=== PATIENT | female | born 1940 | race Caucasian/White ===

== ENCOUNTER 2017-01-16 12:35 | Inpatient (IN) | payer MEDICARE, OTHER ==
[~2017-01-16] VITALS: Ht 160 cm; Wt 91.2 kg
[2017-01-16 14:07] LABS: ABNORMAL IP MESSAGE 1; BASOPHILS % 0.3 % (0.0-2.0); EOSINOPHILS # 0.1 10^3/ul (0.0-0.5); EOSINOPHILS % 1.3 % (0.0-7.0); HEMATOCRIT 33.5 % (37.0-47.0); HEMOGLOBIN 10.6 g/dl (12.0-16.0); LYMPHOCYTES # 0.8 10^3/ul (0.8-2.9); LYMPHOCYTES % 12.4 % (15.0-51.0); MEAN CORPUSCULAR HEMOGLOBIN 30.3 pg (29.0-33.0); MEAN CORPUSCULAR HGB CONC 31.6 g/dl (32.0-37.0); MEAN CORPUSCULAR VOLUME 95.7 fl (82.0-101.0); MONOCYTE # 0.6 10^3/ul (0.3-0.9); MONOCYTES % 9.2 % (0.0-11.0); NEUTROPHIL # 5.1 10^3/ul (1.6-7.5); NEUTROPHILS % 76.4 % (39.0-77.0); PLATELET COUNT 88 10^3/UL (140-415); RED CELL DISTRIBUTION WIDTH 17.2 % (11.5-14.5); WHITE BLOOD COUNT 6.7 10^3/ul (4.8-10.8)
[2017-01-16 14:20] LABS: POSITIVE DIFF @See below
[2017-01-16 14:26] LABS: ALBUMIN 4.8 g/dl (3.3-4.9); ALBUMIN/GLOBULIN RATIO 1.41; CREATININE 4.85 mg/dl (0.44-1.00); POTASSIUM 4.6 mmol/L (3.5-5.1); TOTAL PROTEIN 8.2 g/dl (6.1-8.1)
--- NOTE | 2017-01-16 14:37 | RADRPT ---
AMENDMENT: 01/17/2017 1:09:16 PM Inge Lux M.D. There is an 8.1 x 3.7 x 8.1 cm homogeneous structure around the greater trochanter of the left proxi mal femur measuring approximately 55 HU in density. There is soft tissue stranding of the overlying subcutaneous soft tissues. There are no underlying bony changes. Further evaluation with MRI pelvi s/left hip with and without contrast is recommended to evaluate for mass. An MRI has been ordered a t time of current addendum. PROCEDURE: CT Abdomen and Pelvis without contrast. CLINICAL INDICATION: Pain. TECHNIQUE: Multiple contiguous axial CT images of the abdomen and pelvis were obtained without the administration of intravenous contrast. Coronal and sagittal reconstructions were also performed. CTDIvol (mGy): 20.93; Total Exam DLP (mGy-cm): 1276.67. One or more of the following dose reduction techniques were utilized: - Automated exposure control. - Adjustment of the mA and/or kV according to patient size. - Use of iterative reconstruction technique. COMPARISON: None. FINDINGS: Limited imaging of the lower thorax demonstrates scattered nonspecific chronic interstitial changes with mild traction bronchiectasis. The liver demonstrates a micronodular contour suggesting the presence of cirrhosis. The spleen is e nlarged measuring approximately 16.2 cm in a craniocaudal dimension. Cholelithiasis is present. The pancreas and adrenal glands are unremarkable. The kidneys are small and symmetric in size. There are no nephroureteral stones. There is no hydron ephrosis or abnormal perinephric inflammation. The abdominal aorta is normal in caliber. Atherosclerotic calcification is present. There is no per iaortic / retroperitoneal lymphadenopathy. The stomach and small and large intestines are unremarkable. The appendix is not visualized. There are no focal inflammatory changes of the mesentery. There is no mesenteric lymphadenopathy. There is no ascites. The bladder, uterus and adnexa are unremarkable. There is no free pelvic fluid. There is no pelvic sidewall or inguinal lymphadenopathy. Moderate severe degenerative disk disease is seen throughout the lumbar spine. Bilateral hip osteoa rthritis is also present. Body wall soft tissues are unremarkable. IMPRESSION: Cirrhosis and portal hypertension. Cholelithiasis. No evidence of abdominopelvic mass, lymphadenopathy or acute inflammatory pathology. RPTAT: HLST .Inge Lux MD, MD Date Time Electronically viewed and signed by .Inge Lux MD, MD on 01/17/2017 13:09 .T/
--- NOTE | 2017-01-16 15:07 | RADRPT ---
PROCEDURE: XR Hip. CLINICAL INDICATION: Bilateral hip pain. TECHNIQUE: 4 views of the bilateral hips were performed. COMPARISON: CT dated 08/03. FINDINGS: There is no acute fracture, dislocation, or other osteoarticular abnormality. The alignm ent is normal and the soft tissues unremarkable. The osseous mineralization is within normal limits . There is mild to moderate osteoarthritis of the hip joints bilaterally with joint space narrowing and subchondral sclerosis. There is moderate degenerative change of the SI joints bilaterally. IMPRESSION: 1. Negative for acute fracture dislocation. 2. Mild to moderate osteoarthritis of the hip joints bilaterally. 3. Moderate degenerative change of the SI joints bilaterally. RPTAT: HLBP .Tyson Gregg MD, Date Time Electronically viewed and signed by .Tyson Gregg MD, on 01/16/2017 15:07 .P/
[2017-01-16 15:21] LABS: ADD UMIC YES; UR ASCORBIC ACID 40 mg/dL (NEGATIVE); UR BILIRUBIN (Dip) NEGATIVE (NEGATIVE); UR BLOOD (Dip) NEGATIVE (NEGATIVE); UR CLARITY CLEAR (CLEAR); UR COLOR YELLOW (YELLOW); UR GLUCOSE (Dip) 1+ mg/dL (NEGATIVE); UR KETONES (Dip) NEGATIVE (NEGATIVE); UR LEUKOCYTE ESTERASE (Dip) NEGATIVE Leu/ul (NEGATIVE); UR NITRITE (Dip) NEGATIVE (NEGATIVE); UR RBC 0 /HPF (0-5); UR SPECIFIC GRAVITY (Dip) 1.014 (1.003-1.030); UR TOTAL PROTEIN (Dip) 2+ mg/dl (NEGATIVE); UR UROBILINOGEN (Dip) NEGATIVE (NEGATIVE)
[2017-01-16] MEDS ORDERED: DEXAMETHASONE 10 MG/ML 1 ML INJ IV ONE (16:00)
[2017-01-16] MEDS ORDERED: morphine 2 MG INJ IV ONE (16:00)
--- NOTE | 2017-01-16 16:52 | ERA ---
ER Documentation Chief Complaint Date/Time DATE: 01/16/17 TIME: 16:49 Chief Complaint LEFT HIP PAIN SINCE THIS AM HPI This 76-year-old female presents to the emergency room after being sent in by her senior interactive producer for evaluation of hip pain. This patient has had left hip pain and right hip pain for the past 2 days and has been unable to walk. The patient was referred to the emergency room for further evaluation. She denies any trauma, denies any fevers associated with this and came to the ER for further evaluation. ROS All systems reviewed and are negative except as per history of present illness. Allergies Allergies: Coded Allergies: No Known Allergy (Unverified , 01/16/17) PMhx/Soc History of Surgery: Yes (DEBORAH AV FISTULA) Anesthesia Reaction: No Hx Neurological Disorder: No Hx Respiratory Disorders: No Hx Cardiac Disorders: Yes (HTN) Hx Psychiatric Problems: No Hx Miscellaneous Medical Probl: Yes (CKD ON HD, DM) Hx Alcohol Use: No Hx Substance Use: No Hx Tobacco Use: No Smoking Status: Never smoker Physical Exam Vitals Vital Signs Date Time Temp Pulse Resp B/P Pulse Ox O2 Delivery O2 Flow Rate FiO2 01/16/17 15:40 98.1 76 18 119/53 95 Room Air 01/16/17 12:40 98.2 82 18 168/71 93 Physical Exam Const: No acute distress Head: Atraumatic Eyes: Normal Conjunctiva ENT: Normal External Ears, Nose and Mouth. Neck: Full range of motion..~ No meningismus. Resp: Clear to auscultation bilaterally Cardio: Regular rate and rhythm, no murmurs Abd: Soft, non tender, non distended. Normal bowel sounds Skin: No petechiae or rashes Back: No midline or flank tenderness Ext: Positive straight leg raise degrees on the left, no cyanosis, or edema Neur: Awake and alert Psych: Normal Mood and Affect Result Diagram: 01/16/17 1355 01/16/17 1355 Results 24 hrs Laboratory Tests Test 01/16/17 13:55 01/16/17 14:38 White Blood Count 6.710^3/ul Red Blood Count 3.5010^6/ul Hemoglobin 10.6g/dl Hematocrit 33.5% Mean Corpuscular Volume 95.7fl Mean Corpuscular Hemoglobin 30.3pg Mean Corpuscular Hemoglobin Concent 31.6g/dl Red Cell Distribution Width 17.2% Platelet Count 8810^3/UL Mean Platelet Volume 11.0fl Neutrophils % 76.4% Lymphocytes % 12.4% Monocytes % 9.2% Eosinophils % 1.3% Basophils % 0.3% Nucleated Red Blood Cells % 0.0/100WBC Neutrophils # 5.110^3/ul Lymphocytes # 0.810^3/ul Monocytes # 0.610^3/ul Eosinophils # 0.110^3/ul Basophils # 0.010^3/ul Nucleated Red Blood Cells # 0.010^3/ul Sodium Level 141mmol/L Potassium Level 4.6mmol/L Chloride Level 93mmol/L Carbon Dioxide Level 24mmol/L Anion Gap 29 Blood Urea Nitrogen 65mg/dl Creatinine 4.85mg/dl Glucose Level 163mg/dl Calcium Level 10.0mg/dl Total Bilirubin 0.0mg/dl Direct Bilirubin 0.00mg/dl Indirect Bilirubin 0.0mg/dl Aspartate Amino Transf (AST/SGOT) 26IU/L Alanine Aminotransferase (ALT/SGPT) 26IU/L Alkaline Phosphatase 144IU/L Total Protein 8.2g/dl Albumin 4.8g/dl Globulin 3.40g/dl Albumin/Globulin Ratio 1.41 Lipase 386U/L Urine Color YELLOW Urine Clarity CLEAR Urine pH 7.0 Urine Specific [place] 1.014 Urine Ketones NEGATIVEmg/dL Urine Nitrite NEGATIVEmg/dL Urine Bilirubin NEGATIVEmg/dL Urine Urobilinogen NEGATIVEmg/dL Urine Leukocyte Esterase NEGATIVELeu/ul Urine Microscopic RBC 0/HPF Urine Microscopic WBC 0/HPF Urine Hemoglobin NEGATIVEmg/dL Urine Glucose 1+mg/dL Urine Total Protein 2+mg/dl Current Medications Medications (Trade) Dose Ordered Sig/Mike Route PRN Reason Start Time Stop Time Status Last Admin Dose Admin Morphine Sulfate (morphine) 2 mg ONCE ONCE IV 01/16/17 16:00 01/16/17 16:01 DC 01/16/17 15:54 Dexamethasone (Decadron) 10 mg ONCE ONCE IV 01/16/17 16:00 01/16/17 16:01 DC 01/16/17 15:54 Procedures/MDM X-ray Hip 2V Interpreted by me: Bones: [No fracture] Joints: [No dislocation] Foreign body: [None] CT abdomen pelvis: 1. Negative for acute fracture dislocation. 2. Mild to moderate osteoarthritis of the hip joints bilaterally. 3. Moderate degenerative change of the SI joints bilaterally. This 76-year-old female presents to the ER for evaluation of right and left hip pain. This patient had no trauma. X-rays are clear. Lab work was obtained which is within normal limits except for chronic renal insufficiency. CT the abdomen pelvis is also within normal limits. The patient had a straight leg raise which is positive on the left consistent with acute sciatica. I contacted her senior interactive producer who stated the patient can go home however prior to discharge this patient states she could not ambulate. The patient was given morphine, Decadron, and 3 attempts have been made to ambulate this patient however she states she cannot walk. The patient has no focal neurological deficits and intact reflexes. She will be placed in for admission at this time for inability to ambulate for PT OT consult Departure Diagnosis: Primary Impression: Inability to ambulate due to hip Additional Impressions: Hip pain Chronic renal failure Condition: Fair LINDA SCHROEDER DO Jan 16, 2017 16:52
[2017-01-16] MEDS ORDERED: ONDANSETRON 4 MG INJ IV PRN ×2 (17:00→19:00)
[2017-01-16] MEDS ORDERED: ACETAMINOPHEN 325 MG TAB PO PRN (17:00)
[2017-01-16 18:24] VITALS: TEMP 98.5
[2017-01-16] MEDS ORDERED: morphine 2 MG INJ IV PRN (19:00)
[2017-01-16] MEDS ORDERED: NACL 0.9% 3 ML SYG IV SCH (19:00)
--- NOTE | 2017-01-16 19:03 | HP ---
Date/Time of Note Date/Time of Note DATE: 01/16/17 TIME: 18:41 Assessment/Plan VTE Prophylaxis VTE Prophylaxis Intervention: SCD's Assessment/Plan Chief Complaint/Hosp Course Patient is a 76-year-old female with a past medical history of end-stage renal disease and osteoarthritis who presents to [facility] for debility and left and right hip pain with no CT abnormality Assessment and problem list Weakness Anemia, chronic Thrombocytopenia End-stage renal disease Hip pain Osteoarthritis Questionable cirrhosis Splenomegaly Moderate to severe degenerative disc disease Bilateral hip osteoarthritis Portal hypertension Electrolyte derangement Plan -CT showing only osteoarthritis and moderate to severe lumbar disc degeneration. However upon personal read there is soft tissue mass on the left hip area where patient is complaining of new onset mass, possibly inflammatory, as patient states that already improved with morphine and dexamethasone. -Monitor area of inflammation tomorrow, and possible repeat read from another radiologist. -Dr. Robertson consulted for nephrology, will dialyze as needed. -Possible sciatic nerve involvement given straight leg test positive by ED physician, will restart gabapentin and as needed muscle relaxers -Questionable undiagnosed cirrhosis, will monitor for now and will likely need outpatient GI follow-up, no acute complaints regarding. -PT OT, possible rehab Problems: HPI/ROS Admit Date/Time Admit Date/Time Hx of Present Illness Patient is a 76-year-old female with a past medical history of end-stage renal disease on hemodialysis, osteoarthritis and dyslipidemia who presents to [facility] for difficulty ambulating and hip pain. Patient was evaluated in the ED and stated that for the past day or so she normally can get up by herself or with mild assistance and this time could not ambulate which he usually does with a cane. The son is at bedside to help translate. Patient states that there is also a bump on her hip which is new but that the pain and size of this bump has decreased since receiving Decadron and morphine in the ED. Patient had a positive straight leg test per ED physician. CT and x-ray were negative except for chronic osteoarthritis and degenerative changes. PMH: End-stage renal disease, gout, dyslipidemia, questionable cirrhosis, osteoarthritis PSH: Left upper extremity fistula Social: Denies smoking drinking or drugs Meds: Allopurinol 100 mg daily, Lipitor 20 mg daily, ferrous sulfate 325 mill grams daily, Lasix 20 mg twice a day, omega-3 fatty acid 1 g twice a day, Renvela 800 mg 3 times a day, Tiffany-Radha, vitamin D3, magnesium, gemfibrozil 600 mg daily PMH/Family/Social Social History Smoking Status: Never smoker Exam/Review of Systems Vital Signs Vitals Vital Signs Date Time Temp Pulse Resp B/P Pulse Ox O2 Delivery O2 Flow Rate FiO2 01/16/17 18:24 98.5 74 18 122/64 94 Room Air Exam Exam Physical exam General: Patient is laying in bed and answers questions appropriately Mentation: Patient is alert and oriented 4, Head: Normocephalic atraumatic Eyes: EOMI, pupils reactive to light Neck: Supple, nontender, midline Respiratory: Clear to auscultation bilaterally Cardiovascular: regular rate, no obvious murmurs Gastrointestinal: non-tender to palpation, bowel sounds heard. obese Neurological: Moves all extremities spontaneously, L LE markedly weak 2/2 pain compared to R. Skin: L hip has palpable mass, soft tissue texture with no erythema/tenderness. Labs Result Diagram: 01/16/17 1355 01/16/17 1355 SANDRA DENNIS Jan 16, 2017 19:03
[2017-01-16 19:48] VITALS: BP 125/68; RESP 20
[2017-01-16] MEDS: PREGABALIN 25 MG CAP PO SCH (20:19)
[2017-01-16] MEDS: ATORVASTATIN 20 MG TAB PO SCH (20:19)
[2017-01-16] MEDS: FUROSEMIDE 20 MG TAB PO SCH (20:20)
[2017-01-16] MEDS: GABAPENTIN 100 MG CAP PO SCH (20:20)
[2017-01-16 20:24] VITALS: Ht 160 cm; Wt 91.2 kg
[2017-01-16] MEDS ORDERED: GLUCOSE GEL 15 GRAM TUBE BUCCAL PRN (21:00)
[2017-01-16] MEDS ORDERED: GLUCAGON 1 MG INJ IM PRN (21:00)
[2017-01-16] MEDS ORDERED: GLUCOSE GEL 15 GRAM TUBE PO PRN ×2 (21:00)
[2017-01-16] MEDS ORDERED: DEXTROSE 50% 50 ML SYRINGE IV PRN ×2 (21:00)
[2017-01-16] MEDS: INSULIN ASPART [NOVOLOG] 3 ML PEN SC SCH (22:29)
[2017-01-16] MEDS ORDERED: INSULIN ASPART [NOVOLOG] 3 ML PEN SC ONE (23:00)
[2017-01-16] MEDS ORDERED: morphine 4 MG/ML VIAL IV PRN (23:00)
[2017-01-16] MEDS: MULTIVIT/CA CARB/B CMPLX/FA TAB PO SCH (23:22)
[2017-01-16] MEDS: INSULIN GLARGINE [LANtus] 3 ML PEN SC SCH (23:23)
[2017-01-17] VITALS (11 sets, daily range): BP systolic 101–129; BP diastolic 55–77; PULSE 67–70; RESP 18–19
[2017-01-17] MEDS ORDERED: ACCU-CHEK XX SCH (02:00)
[2017-01-17] MEDS: ACCU-CHEK XX SCH (03:40)
[2017-01-17 05:35] LABS: ABNORMAL IP MESSAGE 1; HEMATOCRIT 30.5 % (37.0-47.0); HEMOGLOBIN 9.6 g/dl (12.0-16.0); LYMPHOCYTES # 0.5 10^3/ul (0.8-2.9); LYMPHOCYTES % 14.7 % (15.0-51.0); MEAN CORPUSCULAR HEMOGLOBIN 30.4 pg (29.0-33.0); MEAN CORPUSCULAR HGB CONC 31.5 g/dl (32.0-37.0); MEAN CORPUSCULAR VOLUME 96.5 fl (82.0-101.0); MONOCYTE # 0.2 10^3/ul (0.3-0.9); MONOCYTES % 5.6 % (0.0-11.0); NEUTROPHIL # 2.7 10^3/ul (1.6-7.5); NEUTROPHILS % 78.8 % (39.0-77.0); PLATELET COUNT 70 10^3/UL (140-415); RED BLOOD COUNT 3.16 10^6/ul (4.20-5.40); RED CELL DISTRIBUTION WIDTH 16.6 % (11.5-14.5); WHITE BLOOD COUNT 3.4 10^3/ul (4.8-10.8)
[2017-01-17 05:41] LABS: POSITIVE DIFF @See below
[2017-01-17] MEDS: FUROSEMIDE 20 MG TAB PO SCH ×2 (06:00→17:51)
[2017-01-17 06:25] LABS: CALCIUM 9.8 mg/dl (8.4-10.2); CREATININE 5.16 mg/dl (0.44-1.00); MAGNESIUM 2.4 mg/dl (1.7-2.5); PHOSPHORUS 7.5 mg/dl (2.5-4.9)
[2017-01-17] MEDS: PREGABALIN 25 MG CAP PO SCH (09:01)
[2017-01-17] MEDS: SEVELAMER CARBONATE 0.8 GM PKT PO SCH ×3 (09:02→17:50)
[2017-01-17] MEDS: ALLOPURINOL 100 MG TAB PO SCH (09:02)
[2017-01-17] MEDS: MULTIVIT/CA CARB/B CMPLX/FA TAB PO SCH (09:02)
[2017-01-17] MEDS: GABAPENTIN 100 MG CAP PO SCH (09:02)
[2017-01-17] MEDS: GEMFIBROZIL 600 MG TAB PO SCH (09:02)
[2017-01-17] MEDS: INSULIN ASPART [NOVOLOG] 3 ML PEN SC SCH ×4 (09:06→21:02)
[2017-01-17] MEDS: HYDROCODONE/APAP (5/325) TAB PO PRN ×2 (11:50→17:51)
--- NOTE | 2017-01-17 13:52 | PN ---
Date/Time of Note Date/Time of Note DATE: 01/17/17 TIME: 13:49 Assessment/Plan VTE Prophylaxis VTE Prophylaxis Intervention: SCD's Lines/Catheters IV Catheter Type (from Nrsg): Saline Lock Assessment/Plan Chief Complaint/Hosp Course Patient is a 76-year-old female with a past medical history of end-stage renal disease and osteoarthritis who presents to [facility] for debility and left and right hip pain with no CT abnormality Assessment and problem list Weakness left hip mass Anemia, chronic Thrombocytopenia End-stage renal disease Hip pain Osteoarthritis Questionable cirrhosis Splenomegaly Moderate to severe degenerative disc disease Bilateral hip osteoarthritis Portal hypertension Electrolyte derangement Plan -sugars high, but a1c not significantly elevated, likely 2/2 to dexamethasone yesterday. monitor for now. insulin has been adjusted. -call made to radiology and addendum to imaging made, of soft tissue mass on left hip area. recommended MRI, MRI pending at this time. -Dr. Robertson consulted for nephrology, will dialyze as needed. -Possible sciatic nerve involvement given straight leg test positive, cont gabapentin -Questionable undiagnosed cirrhosis, will monitor for now and will likely need outpatient GI follow-up, no acute complaints regarding. -PT OT, possible rehab Problems: Subjective 24 Hr Interval Summary Free Text/Dictation still continued pain and still difficult to walk due to pain. Exam/Review of Systems Vital Signs Vitals Vital Signs Date Time Temp Pulse Resp B/P Pulse Ox O2 Delivery O2 Flow Rate FiO2 01/17/17 07:42 98.0 77 19 116/62 98 01/16/17 18:24 Room Air Intake and Output 01/16/17 01/16/17 01/17/17 15:00 23:00 07:00 Intake Total 1100 ml Output Total 3000 ml Balance -1900 ml Exam Physical exam General: Patient is laying in bed and answers questions appropriately Mentation: Patient is alert and oriented 4, Head: Normocephalic atraumatic Eyes: EOMI, pupils reactive to light Neck: Supple, nontender, midline Respiratory: Clear to auscultation bilaterally Cardiovascular: regular rate, no obvious murmurs Gastrointestinal: non-tender to palpation, bowel sounds heard. obese Neurological: Moves all extremities spontaneously, L LE markedly weak 2/2 pain compared to R. Skin: L hip has palpable mass, soft tissue texture with no erythema/tenderness. Results Result Diagram: 01/17/17 0441 01/17/17 0441 Results 24 hrs Laboratory Tests Test 01/16/17 13:55 01/16/17 14:38 01/16/17 22:24 01/17/17 03:38 White Blood Count 6.7 Red Blood Count 3.50 L Hemoglobin 10.6 L Hematocrit 33.5 L Mean Corpuscular Volume 95.7 Mean Corpuscular Hemoglobin 30.3 Mean Corpuscular Hemoglobin Concent 31.6 L Red Cell Distribution Width 17.2 H Platelet Count 88 L Mean Platelet Volume 11.0 H Neutrophils % 76.4 Lymphocytes % 12.4 L Monocytes % 9.2 Eosinophils % 1.3 Basophils % 0.3 Nucleated Red Blood Cells % 0.0 Neutrophils # 5.1 Lymphocytes # 0.8 Monocytes # 0.6 Eosinophils # 0.1 Basophils # 0.0 Nucleated Red Blood Cells # 0.0 Sodium Level 141 Potassium Level 4.6 Chloride Level 93 L Carbon Dioxide Level 24 Anion Gap 29 H Blood Urea Nitrogen 65 H Creatinine 4.85 H Glucose Level 163 Calcium Level 10.0 Total Bilirubin 0.0 L Direct Bilirubin 0.00 Indirect Bilirubin 0.0 Aspartate Amino Transf (AST/SGOT) 26 Alanine Aminotransferase (ALT/SGPT) 26 Alkaline Phosphatase 144 H Total Protein 8.2 H Albumin 4.8 Globulin 3.40 H Albumin/Globulin Ratio 1.41 Lipase 386 H Urine Color YELLOW Urine Clarity CLEAR Urine pH 7.0 Urine Specific [place] 1.014 Urine Ketones NEGATIVE Urine Nitrite NEGATIVE Urine Bilirubin NEGATIVE Urine Urobilinogen NEGATIVE Urine Leukocyte Esterase NEGATIVE Urine Microscopic RBC 0 Urine Microscopic WBC 0 Urine Hemoglobin NEGATIVE Urine Glucose 1+ H Urine Total Protein 2+ H Bedside Glucose 435 *H 294 H Test 01/17/17 04:41 01/17/17 08:40 01/17/17 12:17 White Blood Count 3.4 #L Red Blood Count 3.16 L Hemoglobin 9.6 L Hematocrit 30.5 L Mean Corpuscular Volume 96.5 Mean Corpuscular Hemoglobin 30.4 Mean Corpuscular Hemoglobin Concent 31.5 L Red Cell Distribution Width 16.6 H Platelet Count 70 #L Mean Platelet Volume 11.0 H Neutrophils % 78.8 H Lymphocytes % 14.7 L Monocytes % 5.6 Eosinophils % 0.0 Basophils % 0.0 Nucleated Red Blood Cells % 0.0 Neutrophils # 2.7 Lymphocytes # 0.5 L Monocytes # 0.2 L Eosinophils # 0.0 Basophils # 0.0 Nucleated Red Blood Cells # 0.0 Sodium Level 142 Potassium Level 5.0 Chloride Level 94 L Carbon Dioxide Level 23 Anion Gap 30 H Blood Urea Nitrogen 81 H Creatinine 5.16 H Glucose Level 246 H Hemoglobin A1c 6.6 H Calcium Level 9.8 Phosphorus Level 7.5 H Magnesium Level 2.4 Bedside Glucose 178 223 H Medications Medications Current Medications Ondansetron HCl (Zofran Inj) 4 mg Q6H PRN IV NAUSEA AND/OR VOMITING; Start 01/16 at 19:00 Bisacodyl (Dulcolax) 5 mg DAILY PRN PO CONSTIPATION; Start 01/16/17 at 19:00 Allopurinol (Zyloprim) 100 mg DAILY PO Last administered on 01/17/17 09:02; Admin Dose 100 MG; Start 01/17/17 at 09:00 Atorvastatin Calcium (Lipitor) 20 mg HS PO Last administered on 01/16/17 20:19 ; Admin Dose 20 MG; Start 01/16/17 at 21:00 Multivit/Ca Carb/ B Cmplx/FA/Prenat (Tiffany-Radha) 1 tab DAILY PO Last administered on 01/17/17 09:02; Admin Dose 1 TAB; Start 01/16/17 at 19:00 Gemfibrozil (Lopid) 600 mg DAILY PO Last administered on 01/17/17 09:02; Admin Dose 600 MG; Start 01/17/17 at 09:00 Gabapentin (Neurontin) 100 mg DAILY PO Last administered on 01/17/17 09:02; Admin Dose 100 MG; Start 01/16/17 at 19:30 Pregabalin (Lyrica) 25 mg DAILY PO Last administered on 01/17/17 09:01; Admin Dose 25 MG; Start 01/16/17 at 19:30 Diagnostic Test (Pha) (Accu-Chek) 1 ea 02 XX Last administered on 01/17/17 03: 40; Admin Dose 1 EA; Start 01/17/17 at 02:00 Miscellaneous Information 1 ea NOTE XX ; Start 01/16/17 at 21:00 Glucose (Glutose) 15 gm Q15M PRN PO DECREASED GLUCOSE; Start 01/16/17 at 21:00 Glucose (Glutose) 22.5 gm Q15M PRN PO DECREASED GLUCOSE; Start 01/16/17 at 21:00 Dextrose (D50w Syringe) 25 ml Q15M PRN IV DECREASED GLUCOSE; Start 01/16/17 at 21:00 Dextrose (D50w Syringe) 50 ml Q15M PRN IV DECREASED GLUCOSE; Start 01/16/17 at 21:00 Glucagon (Glucagen) 1 mg Q15M PRN IM DECREASED GLUCOSE; Start 01/16/17 at 21:00 Glucose (Glutose) 15 gm Q15M PRN BUCCAL DECREASED GLUCOSE; Start 01/16/17 at 21: 00 Insulin Glargine (Lantus) 12 unit HS SC Last administered on 01/16/17 23:23; Admin Dose 12 UNIT; Start 01/16/17 at 23:00 Acetaminophen/ Hydrocodone Bitart ([place] (5/325)) 1 tab Q4H PRN PO PAIN LEVEL 4 -6; Start 01/17/17 at 11:30 Acetaminophen/ Hydrocodone Bitart ([place] (5/325)) 2 tab Q4H PRN PO SEVERE PAIN LEVEL 7-10 Last administered on 01/17/17 11:50; Admin Dose 2 TAB; Start 01/17/17 at 11:30 SANDRA DENNIS Jan 17, 2017 13:52
[2017-01-17] MEDS ORDERED: FER325 PO (16:08)
[2017-01-17] MEDS ORDERED: ALLO100T64 PO (16:08)
[2017-01-17] MEDS ORDERED: FURO-110 PO (16:08)
[2017-01-17] MEDS ORDERED: MAGN400T27 PO (16:08)
[2017-01-17] MEDS ORDERED: OMEG1CAP90 PO (16:08)
[2017-01-17] MEDS ORDERED: SEVE0.8P PO (16:08)
[2017-01-17] MEDS ORDERED: GEMF600T60 PO (16:08)
[2017-01-17] MEDS ORDERED: ATOR20TA38 PO (16:08)
[2017-01-17] MEDS: ATORVASTATIN 20 MG TAB PO SCH (20:48)
[2017-01-17] MEDS: INSULIN GLARGINE [LANtus] 3 ML PEN SC SCH (21:01)
[2017-01-18] VITALS (11 sets, daily range): BP systolic 95–152; BP diastolic 42–67; PULSE 63–71; RESP 17–19
[2017-01-18] MEDS: ACCU-CHEK XX SCH (01:31)
--- NOTE | 2017-01-18 04:55 | CONS ---
DATE OF ADMISSION: 01/16/2017 DATE OF CONSULTATION: 01/17/[address] Mandujano: Thank you for asking me to participate in the care of this 76- year-old Czech female who speaks limited Peruvian. However, information is well available in her multiple previous admission records. She has known history of diabetes type 2, hypertension and congestive heart failure with end-stage kidney disease for which she has been on hemodialysis for several years in [place]. The son called in the cafe associate on the date of admission that the patient was having severe back pain and leg pain and could not get up. Ambulance was called and the patient was brought to the emergency room. The patient had been carefully evaluated with the ER physician and extensive workup failed to reveal any acute injury. However, since the patient could not walk she was transferred to the medical floor. Workup included a CT scan of the spine showing moderate to severe lumbar disk degeneration and there was a question of a mass, probably inflammatory in origin, in the left hip. The rest of the workup was negative. Hematocrit 33.5 percent. Electrolytes normal. BUN 65, creatinine 4.8. The patient was transferred to the medical floor where she had already been dialyzed because of her scheduled day of dialysis. She has also been evaluated by the orthopedist. Please refer to the ship's electronic warfare officer Dr. Mandujano's record further available in the chart, it is not clear if he's called an orthopedist. In summary, patient did have some additional studies including hip x-ray that was also suggestive of moderate degenerative joint changes, no hip fracture was noted. The white count was normal and the followup hematocrit dropped to 30.5 percent however. A urine culture was done and this shows 2+ protein, 1+ glucose. The rest is negative. Chemistry as mentioned the hemoglobin A1c was 6.6, blood sugar is in the 200 range. The patient is not taking any oral hypoglycemic agents at this time, although had been taking in the past. She may have to resume. REVIEW OF SYSTEMS: Negative for any head, ear, nose, throat problems, chest pain, shortness of breath, abdominal pain. The patient did have some episodes of confusion that may be related to pain medications. There was no direct trauma. No seizures, syncope or fall. No other metabolic problems. Rest of the history, please refer to the old records. Please note, the patient does have a history of chronic thrombocytopenia ? related to chronic liver disease with a history of splenomegaly. She is also documented to have osteoarthritis and anemia for which she has been placed on a fibrinogen 64 study and is taking Epogen. PHYSICAL EXAMINATION: GENERAL: The patient is a very pleasant, elderly female who appears to be in no acute distress. VITAL SIGNS: Blood pressure has been very stable at 130/60, heart rate is 77, temperature 98, respiration is not labored at 18. HEENT: Exam of the head, ears, nose, throat is unremarkable. Eyes: Symmetrical pupils, pale conjunctivae, sclerae not icteric. Nose: Normal mucosa. Throat: Tongue is pale, no pharyngeal congestion. NECK: Supple. No jugular venous distention, lymph nodes. Thyroid present. CHEST: Symmetrical. Lungs are clear. HEART: Regular rhythm, S1. No rhonchi. ABDOMEN: Distended. Question of ascites has been ruled out repeatedly by ultrasound. GENITOURINARY: Genitalia not examined. Pt has hx of UTI EXTREMITIES: Left arm AV fistula is functioning. SKIN: Pale. NEUROLOGICAL: No neurological deficits noted. IMPRESSION: 1. History of diabetes, hypertension, end-stage kidney disease, on dialysis. 2. Acute pain in the left hip, etiology unclear, probably related to degenerative joint disease. ? mass in lt hip 3. No evidence of mineral bone disease from the renal failure. 4. Hx of Thromocytopenia PLAN: Patient has been reasonably stable from the mineral metabolism standpoint. The sudden onset of acute pain in the hip is not clear. She probably has no evidence of any underlying fracture since they were not detected by the x-ray. Hemodialysis has already been performed. I will leave the further plans in the hands of Dr. Mandujano, the admitting physician, especially to pursue the source of her hip pain. which she hernandez not had in past.Pt can be discharged she will be followed at the dialysis center once the w/u is complete. Dictated By: Messi Robertson MD /gladis/bobby /Document#: [id number] NOMAN
[2017-01-18 05:13] LABS: ABNORMAL IP MESSAGE 1; BASOPHILS % 0.4 % (0.0-2.0); EOSINOPHILS # 0.1 10^3/ul (0.0-0.5); EOSINOPHILS % 2.4 % (0.0-7.0); HEMATOCRIT 28.2 % (37.0-47.0); HEMOGLOBIN 9.3 g/dl (12.0-16.0); MEAN CORPUSCULAR HEMOGLOBIN 31.4 pg (29.0-33.0); MEAN CORPUSCULAR VOLUME 95.3 fl (82.0-101.0); MEAN PLATELET VOLUME 10.8 fl (7.4-10.4); MONOCYTE # 0.5 10^3/ul (0.3-0.9); MONOCYTES % 10.8 % (0.0-11.0); NEUTROPHIL # 3.3 10^3/ul (1.6-7.5); PLATELET COUNT 81 10^3/UL (140-415); RED BLOOD COUNT 2.96 10^6/ul (4.20-5.40); RED CELL DISTRIBUTION WIDTH 16.5 % (11.5-14.5)
[2017-01-18 05:21] LABS: CALCIUM 8.4 mg/dl (8.4-10.2); CREATININE 4.1 mg/dl (0.44-1.00); POTASSIUM 3.7 mmol/L (3.5-5.1)
[2017-01-18 05:31] LABS: POSITIVE DIFF @See below
[2017-01-18] MEDS: FUROSEMIDE 20 MG TAB PO SCH ×2 (05:54→18:20)
[2017-01-18] MEDS: SEVELAMER CARBONATE 0.8 GM PKT PO SCH ×3 (07:50→18:17)
[2017-01-18] MEDS: INSULIN ASPART [NOVOLOG] 3 ML PEN SC SCH ×4 (09:11→21:14)
--- NOTE | 2017-01-18 11:42 | RADRPT ---
PROCEDURE: MR PELVIS CLINICAL INDICATION: Left hip gluteal mass. Unable to ambulate. TECHNIQUE: MRI of the pelvis was performed utilizing multiple sequences in multiple planes. Image s were reviewed on a high-resolution PACS workstation. No contrast was given since the patient's cre atinine was 5.16. COMPARISON: CT abdomen/pelvis from 01/16/2017 FINDINGS: Within the greater trochanteric bursa on the left, there is a lobulated structure measuring up to 8. 0 cm cranial-caudal by 5.0 cm transverse by 7.4 cm AP of heterogeneous signal. It demonstrates area s bright/dark T1 signal as well as intermediate to dark T2 signal. Areas of bright T1 signal within the structure correspond with dark signal on the fluid-sensitive sequences. It demonstrates increase d attenuation on the CT images without calcification or adjacent bony destructive changes. There is adjacent soft tissue edema and edema within the gluteal musculature. There is also edema within th e vastus lateralis muscle. This lies adjacent to the greater trochanter of the left femur without a n acute fracture, marrow edema, or bony destructive changes. There is thickening and scarring of the left gluteus minimus and medius tendons. There is mild hamst ring origin tendinosis with attenuation of the tendon fibers at the origin. The rectus femoris and iliopsoas tendons are intact. There is no acute fracture, stress reaction, or avascular necrosis of both hips. There is partial t hickness chondral loss within both hips with mild osseous spurring. There are small subchondral cys t within the anterior acetabulum on the left. No significant joint effusion is present. There is also fatty atrophy of the gluteal muscles around the right hip. The pubic symphysis is intact with mild osseous spurring. The adductor muscles and adductor tendon origins are intact. The bilateral sacroiliac joints are intact with mild osseous spurring. There is disk space narrowin g and desiccation within the lower lumbar spine with slight left convex curvature. There is no lymphadenopathy within the visualized pelvis. Pelvic organs are grossly unremarkable. RPTAT: ZZ IMPRESSION: 1. Lobulated structure measuring up to 8.0 cm within the greater trochanteric bursa of heterogeneou s signal and surrounding soft tissue/muscle edema suggestive of a hematoma. A hemorrhagic soft tiss ue neoplasm is not excluded since contrast was not given due to the patient's creatinine in which fo llow-up to resolution is recommended, further evaluation with ultrasound with color Doppler imaging may also be helpful. 2. Mild scarring and thickening of the gluteal tendons which may be from tendinosis. 3. Mild osteoarthrosis of both hips. .Kinjal Scott MD, Date Time Electronically viewed and signed by .Kinjal Scott MD, on 01/18/2017 11:42 .T/
[2017-01-18] MEDS: GEMFIBROZIL 600 MG TAB PO SCH (13:02)
[2017-01-18] MEDS: HYDROCODONE/APAP (5/325) TAB PO PRN (13:04)
[2017-01-18] MEDS: ALLOPURINOL 100 MG TAB PO SCH (13:04)
[2017-01-18] MEDS: PREGABALIN 25 MG CAP PO SCH (13:04)
[2017-01-18] MEDS: MULTIVIT/CA CARB/B CMPLX/FA TAB PO SCH (13:04)
[2017-01-18] MEDS: GABAPENTIN 100 MG CAP PO SCH (13:08)
[2017-01-18] MEDS ORDERED: HYDROCORTISONE 1% 28 GM CR TOP PRN (14:00)
--- NOTE | 2017-01-18 14:09 | PN ---
Date/Time of Note Date/Time of Note DATE: 01/18/17 TIME: 14:08 Assessment/Plan VTE Prophylaxis VTE Prophylaxis Intervention: SCD's Lines/Catheters IV Catheter Type (from Nrsg): Saline Lock Assessment/Plan Chief Complaint/Hosp Course Patient is a 76-year-old female with a past medical history of end-stage renal disease and osteoarthritis who presents to [facility] for debility and left and right hip pain with no CT abnormality Assessment and problem list Weakness left hip mass Anemia, chronic Thrombocytopenia End-stage renal disease Hip pain Osteoarthritis Questionable cirrhosis Splenomegaly Moderate to severe degenerative disc disease Bilateral hip osteoarthritis Portal hypertension Electrolyte derangement Plan -sugars high, but a1c not significantly elevated, likely 2/2 to dexamethasone during admission. monitor for now. insulin has been adjusted. -call made to radiology and addendum to imaging made, of soft tissue mass on left hip area. recommended MRI, MRI shows hematoma vs mass. ortho and heme/onc consulted. -Dr. Robertson consulted for nephrology, will dialyze as needed. -Possible sciatic nerve involvement given straight leg test positive, cont gabapentin -Questionable undiagnosed cirrhosis, will monitor for now and will likely need outpatient GI follow-up, no acute complaints regarding. -PT OT, possible rehab Problems: Subjective 24 Hr Interval Summary Free Text/Dictation no acute complaints, still has left leg pain. Exam/Review of Systems Vital Signs Vitals Vital Signs Date Time Temp Pulse Resp B/P Pulse Ox O2 Delivery O2 Flow Rate FiO2 01/18/17 11:00 63 18 01/18/17 08:29 98.0 148/58 92 01/16/17 18:24 Room Air Intake and Output 01/17/17 01/17/17 01/18/17 15:00 23:00 07:00 Intake Total 340 ml 400 ml Balance 340 ml 400 ml Exam Physical exam General: Patient is laying in bed and answers questions appropriately Mentation: Patient is alert and oriented 4, Head: Normocephalic atraumatic Eyes: EOMI, pupils reactive to light Neck: Supple, nontender, midline Respiratory: Clear to auscultation bilaterally Cardiovascular: regular rate, no obvious murmurs Gastrointestinal: non-tender to palpation, bowel sounds heard. obese Neurological: Moves all extremities spontaneously, L LE markedly weak 2/2 pain compared to R. Skin: L hip has palpable mass, soft tissue texture with no erythema/tenderness. Results Result Diagram: 01/18/17 0445 01/18/17 0445 Results 24 hrs Laboratory Tests Test 01/17/17 17:43 01/17/17 20:53 01/18/17 01:29 01/18/17 04:45 Bedside Glucose 242 H 283 H 186 White Blood Count 5.0 # Red Blood Count 2.96 L Hemoglobin 9.3 L Hematocrit 28.2 L Mean Corpuscular Volume 95.3 Mean Corpuscular Hemoglobin 31.4 Mean Corpuscular Hemoglobin Concent 33.0 Red Cell Distribution Width 16.5 H Platelet Count 81 L Mean Platelet Volume 10.8 H Neutrophils % 66.0 Lymphocytes % 20.0 Monocytes % 10.8 Eosinophils % 2.4 Basophils % 0.4 Nucleated Red Blood Cells % 0.0 Neutrophils # 3.3 Lymphocytes # 1.0 Monocytes # 0.5 Eosinophils # 0.1 Basophils # 0.0 Nucleated Red Blood Cells # 0.0 Sodium Level 136 Potassium Level 3.7 Chloride Level 87 L Carbon Dioxide Level 27 Anion Gap 26 H Blood Urea Nitrogen 62 H Creatinine 4.10 #H Glucose Level 176 Calcium Level 8.4 Phosphorus Level 7.0 H Magnesium Level 2.0 Test 01/18/17 08:45 Bedside Glucose 164 Medications Medications Current Medications Ondansetron HCl (Zofran Inj) 4 mg Q6H PRN IV NAUSEA AND/OR VOMITING; Start 01/16 at 19:00 Bisacodyl (Dulcolax) 5 mg DAILY PRN PO CONSTIPATION; Start 01/16/17 at 19:00 Allopurinol (Zyloprim) 100 mg DAILY PO Last administered on 01/18/17 13:04; Admin Dose 100 MG; Start 01/17/17 at 09:00 Atorvastatin Calcium (Lipitor) 20 mg HS PO Last administered on 01/17/17 20:48 ; Admin Dose 20 MG; Start 01/16/17 at 21:00 Multivit/Ca Carb/ B Cmplx/FA/Prenat (Tiffany-Radha) 1 tab DAILY PO Last administered on 01/18/17 13:04; Admin Dose 1 TAB; Start 01/16/17 at 19:00 Gemfibrozil (Lopid) 600 mg DAILY PO Last administered on 01/18/17 13:02; Admin Dose 600 MG; Start 01/17/17 at 09:00 Gabapentin (Neurontin) 100 mg DAILY PO Last administered on 01/18/17 13:08; Admin Dose 100 MG; Start 01/16/17 at 19:30 Pregabalin (Lyrica) 25 mg DAILY PO Last administered on 01/18/17 13:04; Admin Dose 25 MG; Start 01/16/17 at 19:30 Diagnostic Test (Pha) (Accu-Chek) 1 ea 02 XX Last administered on 01/18/17 01: 31; Admin Dose 1 EA; Start 01/17/17 at 02:00 Miscellaneous Information 1 ea NOTE XX ; Start 01/16/17 at 21:00 Glucose (Glutose) 15 gm Q15M PRN PO DECREASED GLUCOSE; Start 01/16/17 at 21:00 Glucose (Glutose) 22.5 gm Q15M PRN PO DECREASED GLUCOSE; Start 01/16/17 at 21:00 Dextrose (D50w Syringe) 25 ml Q15M PRN IV DECREASED GLUCOSE; Start 01/16/17 at 21:00 Dextrose (D50w Syringe) 50 ml Q15M PRN IV DECREASED GLUCOSE; Start 01/16/17 at 21:00 Glucagon (Glucagen) 1 mg Q15M PRN IM DECREASED GLUCOSE; Start 01/16/17 at 21:00 Glucose (Glutose) 15 gm Q15M PRN BUCCAL DECREASED GLUCOSE; Start 01/16/17 at 21: 00 Insulin Glargine (Lantus) 12 unit HS SC Last administered on 01/17/17 21:01; Admin Dose 12 UNIT; Start 01/16/17 at 23:00 Acetaminophen/ Hydrocodone Bitart ([place] (5/325)) 1 tab Q4H PRN PO PAIN LEVEL 4 -6 Last administered on 01/18/17 13:04; Admin Dose 1 TAB; Start 01/17/17 at 11:30 Acetaminophen/ Hydrocodone Bitart ([place] (5/325)) 2 tab Q4H PRN PO SEVERE PAIN LEVEL 7-10 Last administered on 01/17/17 17:51; Admin Dose 2 TAB; Start 01/17/17 at 11:30 Hydrocortisone (Hydrocortisone 1% Cr) 1 applic TID PRN TOP ITCHING; Start at 14:00 SANDRA DENNIS Jan 18, 2017 14:09
--- NOTE | 2017-01-18 15:02 | CONS ---
Date/Time of Note Date/Time of Note DATE: 01/18/17 TIME: 15:00 Assessment/Plan Assessment/Plan Additional Assessment/Plan 76 yo female Weakness left hip mass Anemia, chronic Thrombocytopenia End-stage renal disease Hip pain Osteoarthritis Questionable cirrhosis Splenomegaly Moderate to severe degenerative disc disease Bilateral hip osteoarthritis Portal hypertension Electrolyte derangement Soft Tissue Mass, Hematoma Appreciate Ortho and Hem.Onc Consultation S/p HD MWF Schedule BP controlled Cont current Rx and plan Consultation Date/Type/Reason Admit Date/Time Jan 18, 2017 at 10:01 Initial Consult Date Type of Consultation: Renal Reason for Consultation ESRD 24 HR Interval Summary Free Text/Dictation S/p HD yesterday and this am Constitutional: No requiring O2 Exam/Review of Systems Vital Signs Vitals Vital Signs Date Time Temp Pulse Resp B/P Pulse Ox O2 Delivery O2 Flow Rate FiO2 01/18/17 14:48 98.0 76 18 147/67 91 01/16/17 18:24 Room Air Intake and Output 01/17/17 01/17/17 01/18/17 15:00 23:00 07:00 Intake Total 340 ml 400 ml Balance 340 ml 400 ml Exam Constitutional: alert, No distress ENMT: mucosa pink and moist Neck: No jvd Respiratory: No diminished breath sounds, No labored breathing Cardiovascular: regular rate and rhythm, No edema Gastrointestinal: soft Neurological: ENTRY LEVEL [place] II-XII intact, nl mental status, nl speech, nl strength, No confused, No lethargic Skin: No diaphoresis Results Result Diagram: 01/18/17 0445 01/18/17 0445 Results 24 hrs Laboratory Tests Test 01/17/17 17:43 01/17/17 20:53 01/18/17 01:29 01/18/17 04:45 Bedside Glucose 242 H 283 H 186 White Blood Count 5.0 # Red Blood Count 2.96 L Hemoglobin 9.3 L Hematocrit 28.2 L Mean Corpuscular Volume 95.3 Mean Corpuscular Hemoglobin 31.4 Mean Corpuscular Hemoglobin Concent 33.0 Red Cell Distribution Width 16.5 H Platelet Count 81 L Mean Platelet Volume 10.8 H Neutrophils % 66.0 Lymphocytes % 20.0 Monocytes % 10.8 Eosinophils % 2.4 Basophils % 0.4 Nucleated Red Blood Cells % 0.0 Neutrophils # 3.3 Lymphocytes # 1.0 Monocytes # 0.5 Eosinophils # 0.1 Basophils # 0.0 Nucleated Red Blood Cells # 0.0 Sodium Level 136 Potassium Level 3.7 Chloride Level 87 L Carbon Dioxide Level 27 Anion Gap 26 H Blood Urea Nitrogen 62 H Creatinine 4.10 #H Glucose Level 176 Calcium Level 8.4 Phosphorus Level 7.0 H Magnesium Level 2.0 Test 01/18/17 08:45 Bedside Glucose 164 Medications Medications Current Medications Ondansetron HCl (Zofran Inj) 4 mg Q6H PRN IV NAUSEA AND/OR VOMITING; Start 01/16 at 19:00 Bisacodyl (Dulcolax) 5 mg DAILY PRN PO CONSTIPATION; Start 01/16/17 at 19:00 Allopurinol (Zyloprim) 100 mg DAILY PO Last administered on 01/18/17 13:04; Admin Dose 100 MG; Start 01/17/17 at 09:00 Atorvastatin Calcium (Lipitor) 20 mg HS PO Last administered on 01/17/17 20:48 ; Admin Dose 20 MG; Start 01/16/17 at 21:00 Multivit/Ca Carb/ B Cmplx/FA/Prenat (Tiffany-Radha) 1 tab DAILY PO Last administered on 01/18/17 13:04; Admin Dose 1 TAB; Start 01/16/17 at 19:00 Gemfibrozil (Lopid) 600 mg DAILY PO Last administered on 01/18/17 13:02; Admin Dose 600 MG; Start 01/17/17 at 09:00 Gabapentin (Neurontin) 100 mg DAILY PO Last administered on 01/18/17 13:08; Admin Dose 100 MG; Start 01/16/17 at 19:30 Pregabalin (Lyrica) 25 mg DAILY PO Last administered on 01/18/17 13:04; Admin Dose 25 MG; Start 01/16/17 at 19:30 Diagnostic Test (Pha) (Accu-Chek) 1 ea 02 XX Last administered on 01/18/17 01: 31; Admin Dose 1 EA; Start 01/17/17 at 02:00 Miscellaneous Information 1 ea NOTE XX ; Start 01/16/17 at 21:00 Glucose (Glutose) 15 gm Q15M PRN PO DECREASED GLUCOSE; Start 01/16/17 at 21:00 Glucose (Glutose) 22.5 gm Q15M PRN PO DECREASED GLUCOSE; Start 01/16/17 at 21:00 Dextrose (D50w Syringe) 25 ml Q15M PRN IV DECREASED GLUCOSE; Start 01/16/17 at 21:00 Dextrose (D50w Syringe) 50 ml Q15M PRN IV DECREASED GLUCOSE; Start 01/16/17 at 21:00 Glucagon (Glucagen) 1 mg Q15M PRN IM DECREASED GLUCOSE; Start 01/16/17 at 21:00 Glucose (Glutose) 15 gm Q15M PRN BUCCAL DECREASED GLUCOSE; Start 01/16/17 at 21: 00 Insulin Glargine (Lantus) 12 unit HS SC Last administered on 01/17/17 21:01; Admin Dose 12 UNIT; Start 01/16/17 at 23:00 Acetaminophen/ Hydrocodone Bitart ([place] (5/325)) 1 tab Q4H PRN PO PAIN LEVEL 4 -6 Last administered on 01/18/17 13:04; Admin Dose 1 TAB; Start 01/17/17 at 11:30 Acetaminophen/ Hydrocodone Bitart ([place] (5/325)) 2 tab Q4H PRN PO SEVERE PAIN LEVEL 7-10 Last administered on 01/17/17 17:51; Admin Dose 2 TAB; Start 01/17/17 at 11:30 Hydrocortisone (Hydrocortisone 1% Cr) 1 applic TID PRN TOP ITCHING; Start at 14:00 NAINA CARROLL MD Jan 18, 2017 15:02
--- NOTE | 2017-01-18 16:08 | CONS ---
Date/Time of Note Date/Time of Note DATE: 01/18/17 TIME: 16:00 Assessment/Plan Assessment/Plan Chief Complaint/Hosp Course left hip mass Lobulated structure measuring up to 8.0 cm within the greater trochanteric bursa of heterogeneous signal and surrounding soft tissue/muscle edema suggestive of a hematoma. A hemorrhagic soft tissue neoplasm is not excluded since contrast was not given due to the patient's creatinine in which follow-up to resolution is recommended, further evaluation with ultrasound with color Doppler imaging may also be helpful.- WILL ORDER ORTHO EVAL Anemia, chronic MONITOR Thrombocytopenia MONITOR Weakness End-stage renal disease Hip pain Osteoarthritis Questionable cirrhosis Splenomegaly Moderate to severe degenerative disc disease Bilateral hip osteoarthritis Portal hypertension Electrolyte derangement Soft Tissue Mass, Hematoma Problems: Consultation Date/Type/Reason Admit Date/Time Jan 18, 2017 at 10:01 Date of Consultation: Jan 18, 2017 Type of Consultation: HEMEON Reason for Consultation R/O CA Referring Provider: SANDRA MANDUJANO of Present Illness Patient is a 76-year-old female with a past medical history of end-stage renal disease on hemodialysis, osteoarthritis and dyslipidemia who presents to [facility] for difficulty ambulating and hip pain. Patient was evaluated in the ED and stated that for the past day or so she normally can get up by herself or with mild assistance and this time could not ambulate which he usually does with a cane. The son is at bedside to help translate. Patient states that there is also a bump on her hip which is new but that the pain and size of this bump has decreased since receiving Decadron and morphine in the ED. Patient had a positive straight leg test per ED physician. CT and x-ray were negative except for chronic osteoarthritis and degenerative changes. She has known history of diabetes type 2, hypertension and congestive heart failure with end-stage kidney disease for which she has been on hemodialysis for several years in [place]. The son called in the branch sales manager on the date of admission that the patient was having severe back pain and leg pain and could not get up. Ambulance was called and the patient was brought to the emergency room. The patient had been carefully evaluated with the ER physician and extensive workup failed to reveal any acute injury. However, since the patient could not walk she was transferred to the medical floor. Workup included a CT scan of the spine showing moderate to severe lumbar disk degeneration and there was a question of a mass, probably inflammatory in origin, in the left hip. The rest of the workup was negative. Hematocrit 33.5 percent. Electrolytes normal. BUN 65, creatinine 4.8. The patient was transferred to the medical floor where she had already been dialyzed because of her scheduled day of dialysis. She has also been evaluated by the orthopedist. Please refer to the imager Dr. Mandujano's record further available in the chart. In summary, patient did have some additional studies including hip x-ray that was also suggestive of moderate degenerative joint changes, no hip fracture was noted. The white count was normal and the followup hematocrit dropped to 30.5 percent however. A urine culture was done and this shows 2+ protein, 1+ glucose. The rest is negative. Chemistry as mentioned the hemoglobin A1c was 6.6, blood sugar is in the 200 range. The patient is not taking any oral hypoglycemic agents at this time, although had been taking in the past. She may have to resume. REVIEW OF SYSTEMS: Negative for any head, ear, nose, throat problems, chest pain, shortness of breath, abdominal pain. The patient did have some episodes of confusion that may be related to pain medications. There was no direct trauma. No seizures, syncope or fall. No other metabolic problems. Rest of the history, please refer to the old records. Please note, the patient does have a history of chronic thrombocytopenia ? related to chronic liver disease with a history of splenomegaly. She is also documented to have osteoarthritis and anemia for which she has been placed on a fibrinogen 64 study and is taking Epogen. Constitutional: No requiring O2 Social History Smoking Status: Never smoker Exam/Review of Systems Vital Signs Vitals Vital Signs Date Time Temp Pulse Resp B/P Pulse Ox O2 Delivery O2 Flow Rate FiO2 01/18/17 14:48 98.0 76 18 147/67 91 01/16/17 18:24 Room Air Intake and Output 01/17/17 01/17/17 01/18/17 15:00 23:00 07:00 Intake Total 340 ml 400 ml Balance 340 ml 400 ml Exam PHYSICAL EXAMINATION: GENERAL: The patient is a very pleasant, elderly female who appears to be in no acute distress. VITAL SIGNS: Blood pressure has been very stable at 130/60, heart rate is 77, temperature 98, respiration is not labored at 18. HEENT: Exam of the head, ears, nose, throat is unremarkable. Eyes: Symmetrical pupils, pale conjunctivae, sclerae not icteric. Nose: Normal mucosa. Throat: Tongue is pale, no pharyngeal congestion. NECK: Supple. No jugular venous distention, lymph nodes. Thyroid present. CHEST: Symmetrical. Lungs are clear. HEART: Regular rhythm, S1. No rhonchi. ABDOMEN: Distended. Question of ascites has been ruled out repeatedly by ultrasound. GENITOURINARY: Genitalia not examined. EXTREMITIES: Left arm AV fistula is functioning. SKIN: Pale. NEUROLOGICAL: No neurological deficits noted. Results Result Diagram: 01/18/17 0445 01/18/17 0445 Results 24 hrs Laboratory Tests Test 01/17/17 17:43 01/17/17 20:53 01/18/17 01:29 01/18/17 04:45 Bedside Glucose 242 H 283 H 186 White Blood Count 5.0 # Red Blood Count 2.96 L Hemoglobin 9.3 L Hematocrit 28.2 L Mean Corpuscular Volume 95.3 Mean Corpuscular Hemoglobin 31.4 Mean Corpuscular Hemoglobin Concent 33.0 Red Cell Distribution Width 16.5 H Platelet Count 81 L Mean Platelet Volume 10.8 H Neutrophils % 66.0 Lymphocytes % 20.0 Monocytes % 10.8 Eosinophils % 2.4 Basophils % 0.4 Nucleated Red Blood Cells % 0.0 Neutrophils # 3.3 Lymphocytes # 1.0 Monocytes # 0.5 Eosinophils # 0.1 Basophils # 0.0 Nucleated Red Blood Cells # 0.0 Sodium Level 136 Potassium Level 3.7 Chloride Level 87 L Carbon Dioxide Level 27 Anion Gap 26 H Blood Urea Nitrogen 62 H Creatinine 4.10 #H Glucose Level 176 Calcium Level 8.4 Phosphorus Level 7.0 H Magnesium Level 2.0 Test 01/18/17 08:45 Bedside Glucose 164 Medications Medications Current Medications Ondansetron HCl (Zofran Inj) 4 mg Q6H PRN IV NAUSEA AND/OR VOMITING; Start 01/16 at 19:00 Bisacodyl (Dulcolax) 5 mg DAILY PRN PO CONSTIPATION; Start 01/16/17 at 19:00 Allopurinol (Zyloprim) 100 mg DAILY PO Last administered on 01/18/17 13:04; Admin Dose 100 MG; Start 01/17/17 at 09:00 Atorvastatin Calcium (Lipitor) 20 mg HS PO Last administered on 01/17/17 20:48 ; Admin Dose 20 MG; Start 01/16/17 at 21:00 Multivit/Ca Carb/ B Cmplx/FA/Prenat (Tiffany-Radha) 1 tab DAILY PO Last administered on 01/18/17 13:04; Admin Dose 1 TAB; Start 01/16/17 at 19:00 Gemfibrozil (Lopid) 600 mg DAILY PO Last administered on 01/18/17 13:02; Admin Dose 600 MG; Start 01/17/17 at 09:00 Gabapentin (Neurontin) 100 mg DAILY PO Last administered on 01/18/17 13:08; Admin Dose 100 MG; Start 01/16/17 at 19:30 Pregabalin (Lyrica) 25 mg DAILY PO Last administered on 01/18/17 13:04; Admin Dose 25 MG; Start 01/16/17 at 19:30 Diagnostic Test (Pha) (Accu-Chek) 1 ea 02 XX Last administered on 01/18/17 01: 31; Admin Dose 1 EA; Start 01/17/17 at 02:00 Miscellaneous Information 1 ea NOTE XX ; Start 01/16/17 at 21:00 Glucose (Glutose) 15 gm Q15M PRN PO DECREASED GLUCOSE; Start 01/16/17 at 21:00 Glucose (Glutose) 22.5 gm Q15M PRN PO DECREASED GLUCOSE; Start 01/16/17 at 21:00 Dextrose (D50w Syringe) 25 ml Q15M PRN IV DECREASED GLUCOSE; Start 01/16/17 at 21:00 Dextrose (D50w Syringe) 50 ml Q15M PRN IV DECREASED GLUCOSE; Start 01/16/17 at 21:00 Glucagon (Glucagen) 1 mg Q15M PRN IM DECREASED GLUCOSE; Start 01/16/17 at 21:00 Glucose (Glutose) 15 gm Q15M PRN BUCCAL DECREASED GLUCOSE; Start 01/16/17 at 21: 00 Insulin Glargine (Lantus) 12 unit HS SC Last administered on 01/17/17 21:01; Admin Dose 12 UNIT; Start 01/16/17 at 23:00 Acetaminophen/ Hydrocodone Bitart ([place] (5/325)) 1 tab Q4H PRN PO PAIN LEVEL 4 -6 Last administered on 8/4/17at 13:04; Admin Dose 1 TAB; Start 01/17/17 at 11:30 Acetaminophen/ Hydrocodone Bitart ([place] (5/325)) 2 tab Q4H PRN PO SEVERE PAIN LEVEL 7-10 Last administered on 01/17/17 17:51; Admin Dose 2 TAB; Start 01/17/17 at 11:30 Hydrocortisone (Hydrocortisone 1% Cr) 1 applic TID PRN TOP ITCHING; Start at 14:00 Procedures Procedures [place] [address] Radiology Main Line: [phone] DIAGNOSTIC IMAGING REPORT Patient: EZIO NIETO : 1940 Age: 76 Sex: F MR #: [id number] DOS: 01/16/17 1340 Ordering MD: LINDA SCHROEDER DO [place] [facility] [place] [facility] [place] AMENDMENT: 01/17/2017 1:09:16 PM Inge Lux M.D. There is an 8.1 x 3.7 x 8.1 cm homogeneous structure around the greater trochanter of the left proximal femur measuring approximately 55 HU in density. There is soft tissue stranding of the overlying subcutaneous soft tissues. There are no underlying bony changes. Further evaluation with MRI pelvis/left hip with and without contrast is recommended to evaluate for mass. An MRI has been ordered at time of current addendum. PROCEDURE: CT Abdomen and Pelvis without contrast. CLINICAL INDICATION: Pain. TECHNIQUE: Multiple contiguous axial CT images of the abdomen and pelvis were obtained without the administration of intravenous contrast. Coronal and sagittal reconstructions were also performed. CTDIvol (mGy): 20.93; Total Exam DLP (mGy-cm): 1276.67. One or more of the following dose reduction techniques were utilized: - Automated exposure control. - Adjustment of the mA and/or kV according to patient size. - Use of iterative reconstruction technique. COMPARISON: None. FINDINGS: Limited imaging of the lower thorax demonstrates scattered nonspecific chronic interstitial changes with mild traction bronchiectasis. The liver demonstrates a micronodular contour suggesting the presence of cirrhosis. The spleen is enlarged measuring approximately 16.2 cm in a craniocaudal dimension. Cholelithiasis is present. The pancreas and adrenal glands are unremarkable. The kidneys are small and symmetric in size. There are no nephroureteral stones. There is no hydronephrosis or abnormal perinephric inflammation. The abdominal aorta is normal in caliber. Atherosclerotic calcification is present. There is no periaortic / retroperitoneal lymphadenopathy. The stomach and small and large intestines are unremarkable. The appendix is not visualized. There are no focal inflammatory changes of the mesentery. There is no mesenteric lymphadenopathy. There is no ascites. The bladder, uterus and adnexa are unremarkable. There is no free pelvic fluid. There is no pelvic sidewall or inguinal lymphadenopathy. Moderate severe degenerative disk disease is seen throughout the lumbar spine. Bilateral hip osteoarthritis is also present. Body wall soft tissues are unremarkable. IMPRESSION: Cirrhosis and portal hypertension. Cholelithiasis. No evidence of abdominopelvic mass, lymphadenopathy or acute inflammatory pathology. RPTAT: HLST .Inge Lux MD, Date Time Electronically viewed and signed by .Inge Lux MD, on 01/17/2017 13:09 .T/ CC: LINDA SCHROEDER DO [place] [address] Radiology Main Line: [phone] DIAGNOSTIC IMAGING REPORT Patient: EZIO NIETO : 1940 Age: 76 Sex: F MR #: [id number] DOS: 01/18/17 1046 Ordering MD: SANDRA MANDUJANO [place] [facility] [place]Bed: [facility] [place] PROCEDURE: MR PELVIS CLINICAL INDICATION: Left hip gluteal mass. Unable to ambulate. TECHNIQUE: MRI of the pelvis was performed utilizing multiple sequences in multiple planes. Images were reviewed on a high-resolution PACS workstation. No contrast was given since the patient's creatinine was 5.16. COMPARISON: CT abdomen/pelvis from 01/16/2017 FINDINGS: Within the greater trochanteric bursa on the left, there is a lobulated structure measuring up to 8.0 cm cranial-caudal by 5.0 cm transverse by 7.4 cm AP of heterogeneous signal. It demonstrates areas bright/dark T1 signal as well as intermediate to dark T2 signal. Areas of bright T1 signal within the structure correspond with dark signal on the fluid-sensitive sequences. It demonstrates increased attenuation on the CT images without calcification or adjacent bony destructive changes. There is adjacent soft tissue edema and edema within the gluteal musculature. There is also edema within the vastus lateralis muscle. This lies adjacent to the greater trochanter of the left femur without an acute fracture, marrow edema, or bony destructive changes. There is thickening and scarring of the left gluteus minimus and medius tendons. There is mild hamstring origin tendinosis with attenuation of the tendon fibers at the origin. The rectus femoris and iliopsoas tendons are intact. There is no acute fracture, stress reaction, or avascular necrosis of both hips. There is partial thickness chondral loss within both hips with mild osseous spurring. There are small subchondral cyst within the anterior acetabulum on the left. No significant joint effusion is present. There is also fatty atrophy of the gluteal muscles around the right hip. The pubic symphysis is intact with mild osseous spurring. The adductor muscles and adductor tendon origins are intact. The bilateral sacroiliac joints are intact with mild osseous spurring. There is disk space narrowing and desiccation within the lower lumbar spine with slight left convex curvature. There is no lymphadenopathy within the visualized pelvis. Pelvic organs are grossly unremarkable. RPTAT: ZZ IMPRESSION: 1. Lobulated structure measuring up to 8.0 cm within the greater trochanteric bursa of heterogeneous signal and surrounding soft tissue/muscle edema suggestive of a hematoma. A hemorrhagic soft tissue neoplasm is not excluded since contrast was not given due to the patient's creatinine in which follow-up to resolution is recommended, further evaluation with ultrasound with color Doppler imaging may also be helpful. 2. Mild scarring and thickening of the gluteal tendons which may be from tendinosis. 3. Mild osteoarthrosis of both hips. .Kinjal Scott MD, Date Time Electronically viewed and signed by .Kinjal Scott MD, on 01/18/2017 11: 42 .T/ CC: SANDRA MANDUJANO VERA M MD Jan 18, 2017 16:08
[2017-01-18] MEDS: BISACODYL (EC) 5 MG TAB PO PRN (20:45)
[2017-01-18] MEDS: ATORVASTATIN 20 MG TAB PO SCH (20:45)
[2017-01-18] MEDS: DIPHENHYDRAMINE 25 MG CAP PO PRN (21:12)
[2017-01-18] MEDS: INSULIN GLARGINE [LANtus] 3 ML PEN SC SCH (21:13)
[2017-01-19 02:00] VITALS: BP 114/62; PULSE 62; RESP 17
[2017-01-19] MEDS: ACCU-CHEK XX SCH (02:26)
[2017-01-19] MEDS: DIPHENHYDRAMINE 25 MG CAP PO PRN (06:13)
[2017-01-19] MEDS: FUROSEMIDE 20 MG TAB PO SCH ×2 (06:14→17:54)
[2017-01-19] MEDS: INSULIN ASPART [NOVOLOG] 3 ML PEN SC SCH ×4 (07:50→21:02)
[2017-01-19] MEDS: GABAPENTIN 100 MG CAP PO SCH (07:54)
[2017-01-19] MEDS: ALLOPURINOL 100 MG TAB PO SCH (07:55)
[2017-01-19] MEDS: MULTIVIT/CA CARB/B CMPLX/FA TAB PO SCH (07:55)
[2017-01-19] MEDS: HYDROCODONE/APAP (5/325) TAB PO PRN ×2 (07:55→15:47)
[2017-01-19] MEDS: SEVELAMER CARBONATE 0.8 GM PKT PO SCH ×3 (07:55→17:55)
[2017-01-19] MEDS: GEMFIBROZIL 600 MG TAB PO SCH (07:55)
[2017-01-19] MEDS: PREGABALIN 25 MG CAP PO SCH (08:00)
--- NOTE | 2017-01-19 08:02 | RADRPT ---
PROCEDURE: Targeted left hip sonogram. CLINICAL INDICATION: Soft tissue bruising and discoloration with mild edema. TECHNIQUE: Targeted imaging was performed over the area of interest. COMPARISON: No. FINDINGS: There is mild soft tissue edema. No discrete soft tissue mass or abscess is identified. Trace flui d is noted on the fascial interface the IMPRESSION: 1. Soft tissue swelling without evidence of an abscess or mass. RPTAT:AAJJ Physician Josh Date Time Electronically viewed and signed by Physician Josh on 01/19/2017 08:02 /
[2017-01-19 08:33] VITALS: BP 149/64; RESP 17
--- NOTE | 2017-01-19 13:41 | PN ---
Date/Time of Note Date/Time of Note DATE: 01/19/17 TIME: 13:40 Assessment/Plan VTE Prophylaxis VTE Prophylaxis Intervention: SCD's Lines/Catheters IV Catheter Type (from Nrsg): Saline Lock Assessment/Plan Chief Complaint/Hosp Course Patient is a 76-year-old female with a past medical history of end-stage renal disease and osteoarthritis who presents to [facility] for debility and left and right hip pain with no CT abnormality Assessment and problem list Weakness left hip mass Anemia, chronic Thrombocytopenia End-stage renal disease Hip pain Osteoarthritis Questionable cirrhosis Splenomegaly Moderate to severe degenerative disc disease Bilateral hip osteoarthritis Portal hypertension Electrolyte derangement Plan -sugars high, but a1c not significantly elevated, likely 2/2 to dexamethasone during admission. monitor for now. insulin has been adjusted. -call made to radiology and addendum to imaging made, of soft tissue mass on left hip area. recommended MRI, MRI shows hematoma vs mass. ortho and heme/onc consulted. Still pending ortho recs, spoke to Dr. Lima. -Dr. Robertson consulted for nephrology, will dialyze as needed. -Possible sciatic nerve involvement given straight leg test positive, cont gabapentin -Questionable undiagnosed cirrhosis, will monitor for now and will likely need outpatient GI follow-up, no acute complaints regarding. -PT OT, possible rehab Problems: Subjective 24 Hr Interval Summary Free Text/Dictation improved left hip swelling and pain Exam/Review of Systems Vital Signs Vitals Vital Signs Date Time Temp Pulse Resp B/P Pulse Ox O2 Delivery O2 Flow Rate FiO2 01/19/17 08:33 98.2 69 17 149/64 94 01/19/17 02:00 Room Air Intake and Output 01/18/17 01/18/17 01/19/17 15:00 23:00 07:00 Intake Total 300 ml 360 ml Output Total 2300 ml Balance -2000 ml 360 ml Exam Physical exam General: Patient is laying in bed and answers questions appropriately Mentation: Patient is alert and oriented 4, Head: Normocephalic atraumatic Eyes: EOMI, pupils reactive to light Neck: Supple, nontender, midline Respiratory: Clear to auscultation bilaterally Cardiovascular: regular rate, no obvious murmurs Gastrointestinal: non-tender to palpation, bowel sounds heard. obese Neurological: Moves all extremities spontaneously, L LE markedly weak 2/2 pain compared to R. Skin: L hip has palpable mass, soft tissue texture with no erythema/tenderness. Results Result Diagram: 01/18/17 0445 01/18/17 0445 Results 24 hrs Laboratory Tests Test 01/18/17 18:13 01/18/17 20:48 01/19/17 02:00 01/19/17 08:03 Bedside Glucose 152 227 H 201 139 Test 01/19/17 12:31 Bedside Glucose 141 Medications Medications Current Medications Ondansetron HCl (Zofran Inj) 4 mg Q6H PRN IV NAUSEA AND/OR VOMITING; Start 01/16 at 19:00 Bisacodyl (Dulcolax) 5 mg DAILY PRN PO CONSTIPATION Last administered on 20:45; Admin Dose 5 MG; Start 01/16/17 at 19:00 Allopurinol (Zyloprim) 100 mg DAILY PO Last administered on 01/19/17 07:55; Admin Dose 100 MG; Start 01/17/17 at 09:00 Atorvastatin Calcium (Lipitor) 20 mg HS PO Last administered on 01/18/17 20:45 ; Admin Dose 20 MG; Start 01/16/17 at 21:00 Multivit/Ca Carb/ B Cmplx/FA/Prenat (Tiffany-Radha) 1 tab DAILY PO Last administered on 01/19/17 07:55; Admin Dose 1 TAB; Start 01/16/17 at 19:00 Gemfibrozil (Lopid) 600 mg DAILY PO Last administered on 01/19/17 07:55; Admin Dose 600 MG; Start 01/17/17 at 09:00 Gabapentin (Neurontin) 100 mg DAILY PO Last administered on 01/19/17 07:54; Admin Dose 100 MG; Start 01/16/17 at 19:30 Pregabalin (Lyrica) 25 mg DAILY PO Last administered on 01/19/17 08:00; Admin Dose 25 MG; Start 01/16/17 at 19:30 Diagnostic Test (Pha) (Accu-Chek) 1 ea 02 XX Last administered on 01/19/17 02: 26; Admin Dose 1 EA; Start 01/17/17 at 02:00 Miscellaneous Information 1 ea NOTE XX ; Start 01/16/17 at 21:00 Glucose (Glutose) 15 gm Q15M PRN PO DECREASED GLUCOSE; Start 01/16/17 at 21:00 Glucose (Glutose) 22.5 gm Q15M PRN PO DECREASED GLUCOSE; Start 01/16/17 at 21:00 Dextrose (D50w Syringe) 25 ml Q15M PRN IV DECREASED GLUCOSE; Start 01/16/17 at 21:00 Dextrose (D50w Syringe) 50 ml Q15M PRN IV DECREASED GLUCOSE; Start 01/16/17 at 21:00 Glucagon (Glucagen) 1 mg Q15M PRN IM DECREASED GLUCOSE; Start 01/16/17 at 21:00 Glucose (Glutose) 15 gm Q15M PRN BUCCAL DECREASED GLUCOSE; Start 01/16/17 at 21: 00 Insulin Glargine (Lantus) 12 unit HS SC Last administered on 01/18/17 21:13; Admin Dose 12 UNIT; Start 01/16/17 at 23:00 Acetaminophen/ Hydrocodone Bitart ([place] (5/325)) 1 tab Q4H PRN PO PAIN LEVEL 4 -6 Last administered on 01/19/17 07:55; Admin Dose 1 TAB; Start 01/17/17 at 11:30 Acetaminophen/ Hydrocodone Bitart ([place] (5/325)) 2 tab Q4H PRN PO SEVERE PAIN LEVEL 7-10 Last administered on 01/17/17 17:51; Admin Dose 2 TAB; Start 01/17/17 at 11:30 Hydrocortisone (Hydrocortisone 1% Cr) 1 applic TID PRN TOP ITCHING; Start at 14:00 Diphenhydramine HCl (Benadryl) 25 mg Q6H PRN PO ITCHING Last administered on 06:13; Admin Dose 25 MG; Start 01/18/17 at 21:00 SANDRA DENNIS Jan 19, 2017 13:41
[2017-01-19 15:00] VITALS: BP 129/59; RESP 18
--- NOTE | 2017-01-19 18:39 | CONS ---
Date/Time of Note Date/Time of Note DATE: 01/19/17 TIME: 18:33 Assessment/Plan Assessment/Plan Problems: (1) Anemia Status: Chronic Comment: may resume epogen (2) DM2 (diabetes mellitus, type 2) Comment: BS has improved (3) Chronic renal failure Status: Acute Comment: HD MWridays (4) Hip pain Status: Acute Comment: Etiology unclear, pending w/u per PMD Continue pain management Consultation Date/Type/Reason Admit Date/Time Jan 18, 2017 at 10:01 Initial Consult Date 01/18/17 Type of Consultation: renal Referring Provider: SANDRA DENNIS 24 HR Interval Summary Free Text/Dictation Pt resting comfortably Exam/Review of Systems Vital Signs Vitals Vital Signs Date Time Temp Pulse Resp B/P Pulse Ox O2 Delivery O2 Flow Rate FiO2 01/19/17 15:00 98.9 74 18 129/59 93 01/19/17 02:00 Room Air Intake and Output 01/18/17 01/18/17 01/19/17 15:00 23:00 07:00 Intake Total 300 ml 360 ml Output Total 2300 ml Balance -2000 ml 360 ml Exam Constitutional: alert, oriented, well developed Psych: nl mood/affect, no complaints Head: atraumatic, normocephalic Eyes: EOMI, PERRL, nl conjunctiva, nl lids, nl sclera ENMT: nl external ears & nose, nl lips & teeth, nl nasal mucosa & septum Neck: non-tender, supple Respiratory: clear to auscultation, normal air movement Cardiovascular: nl pulses, regular rate and rhythm Gastrointestinal: nl liver, spleen, non-tender, soft Musculoskeletal: nl extremities to inspection, nl gait and stance Extremities: normal pulses, other (lt arm avf, lt leg movement is less painful) Neurological: SEMICONDUCTOR WAFERS MARKER II-XII intact, nl mental status, nl speech, nl strength Skin: nl turgor, other (pale), No rash or lesions Lymph: nl lymph nodes Results Platelets 81 k is nl for this pt Result Diagram: 01/18/17 0445 01/18/17 0445 Results 24 hrs Laboratory Tests Test 01/18/17 20:48 01/19/17 02:00 01/19/17 08:03 01/19/17 12:31 Bedside Glucose 227 H 201 139 141 Test 01/19/17 17:50 Bedside Glucose 156 Medications Medications Current Medications Ondansetron HCl (Zofran Inj) 4 mg Q6H PRN IV NAUSEA AND/OR VOMITING; Start 01/16 at 19:00 Bisacodyl (Dulcolax) 5 mg DAILY PRN PO CONSTIPATION Last administered on 20:45; Admin Dose 5 MG; Start 01/16/17 at 19:00 Allopurinol (Zyloprim) 100 mg DAILY PO Last administered on 01/19/17 07:55; Admin Dose 100 MG; Start 01/17/17 at 09:00 Atorvastatin Calcium (Lipitor) 20 mg HS PO Last administered on 01/18/17 20:45 ; Admin Dose 20 MG; Start 01/16/17 at 21:00 Multivit/Ca Carb/ B Cmplx/FA/Prenat (Tiffany-Radha) 1 tab DAILY PO Last administered on 01/19/17 07:55; Admin Dose 1 TAB; Start 01/16/17 at 19:00 Gemfibrozil (Lopid) 600 mg DAILY PO Last administered on 01/19/17 07:55; Admin Dose 600 MG; Start 01/17/17 at 09:00 Gabapentin (Neurontin) 100 mg DAILY PO Last administered on 01/19/17 07:54; Admin Dose 100 MG; Start 01/16/17 at 19:30 Pregabalin (Lyrica) 25 mg DAILY PO Last administered on 01/19/17 08:00; Admin Dose 25 MG; Start 01/16/17 at 19:30 Diagnostic Test (Pha) (Accu-Chek) 1 ea 02 XX Last administered on 01/19/17 02: 26; Admin Dose 1 EA; Start 01/17/17 at 02:00 Miscellaneous Information 1 ea NOTE XX ; Start 01/16/17 at 21:00 Glucose (Glutose) 15 gm Q15M PRN PO DECREASED GLUCOSE; Start 01/16/17 at 21:00 Glucose (Glutose) 22.5 gm Q15M PRN PO DECREASED GLUCOSE; Start 01/16/17 at 21:00 Dextrose (D50w Syringe) 25 ml Q15M PRN IV DECREASED GLUCOSE; Start 01/16/17 at 21:00 Dextrose (D50w Syringe) 50 ml Q15M PRN IV DECREASED GLUCOSE; Start 01/16/17 at 21:00 Glucagon (Glucagen) 1 mg Q15M PRN IM DECREASED GLUCOSE; Start 01/16/17 at 21:00 Glucose (Glutose) 15 gm Q15M PRN BUCCAL DECREASED GLUCOSE; Start 01/16/17 at 21: 00 Insulin Glargine (Lantus) 12 unit HS SC Last administered on 01/18/17 21:13; Admin Dose 12 UNIT; Start 01/16/17 at 23:00 Acetaminophen/ Hydrocodone Bitart ([place] (5/325)) 1 tab Q4H PRN PO PAIN LEVEL 4 -6 Last administered on 01/19/17 15:47; Admin Dose 1 TAB; Start 01/17/17 at 11:30 Acetaminophen/ Hydrocodone Bitart ([place] (5/325)) 2 tab Q4H PRN PO SEVERE PAIN LEVEL 7-10 Last administered on 01/17/17 17:51; Admin Dose 2 TAB; Start 01/17/17 at 11:30 Hydrocortisone (Hydrocortisone 1% Cr) 1 applic TID PRN TOP ITCHING; Start at 14:00 Diphenhydramine HCl (Benadryl) 25 mg Q6H PRN PO ITCHING Last administered on 06:13; Admin Dose 25 MG; Start 01/18/17 at 21:00 MAK HAGAN MD Jan 19, 2017 18:39
[2017-01-19 20:41] VITALS: BP 135/59; RESP 20
[2017-01-19] MEDS: ATORVASTATIN 20 MG TAB PO SCH (20:56)
[2017-01-19] MEDS: INSULIN GLARGINE [LANtus] 3 ML PEN SC SCH (21:03)
[2017-01-20] MEDS: ACCU-CHEK XX SCH (02:00)
--- NOTE | 2017-01-20 02:01 | CONS ---
DATE OF ADMISSION: 01/18/2017 DATE OF CONSULTATION: 01/19/2017 HISTORY OF PRESENT ILLNESS: The patient is a 76-year-old female, who was admitted on January 16, 2017, when she came to the emergency room complaining of pain involving both hips. Her pain was more on the left hip which she developed about 4 days ago without any history of memorable trauma. She is known to have end-stage renal disease and she is on dialysis. She denies any a history of recent weight loss. PHYSICAL EXAMINATION: My examination revealed a 76-year-old female, who was not in any acute distress. Actually, she claims that she has less pain at this time. MUSCULOSKELETAL: There was a change in the appearance of skin over the trochanteric area of the left hip. It appeared like ecchymosis; however, she again denies any history of trauma and tenderness over the area was minimum. It felt like there might be a blunt soft tissue mass; however, the delineation was not clear. Range of motion of the left hip was comparable to the right hip, and there was minimal pain during the range of motion. Abduction against resistance was not causing any unusual problems. There were no neurovascular compromise involving the left lower extremity. IMAGING STUDIES: CT scan, routine x-rays and ultrasound were essentially negative. MRI scan was showing a lobulated structure measuring 8 cm x 5 cm x 7.4 cm within the greater trochanteric bursa of the left hip. The signal was heterogeneous, and there was soft tissue swelling in the surrounding tissues. The report states that the hemorrhagic soft tissue neoplasm cannot be ruled out. IMPRESSION: Lobulated heterogeneous mass in the trochanteric bursa of the left hip. The etiology cannot be ascertained at this time. PLAN: Recommendations for management will be consult orthopedic oncologic surgery in a [facility] for higher level of care. Since she is ambulatory, she can be referred to oncologic orthopedic surgical clinic as an outpatient. Dictated By: In Leandra Lima MD /gladis/beatrice /Document#: [id number]
[2017-01-20 03:50] VITALS: BP 140/63; RESP 20
[2017-01-20 05:36] LABS: ABNORMAL IP MESSAGE 1; BASOPHILS % 0.2 % (0.0-2.0); EOSINOPHILS # 0.2 10^3/ul (0.0-0.5); HEMATOCRIT 26.5 % (37.0-47.0); HEMOGLOBIN 8.7 g/dl (12.0-16.0); LYMPHOCYTES # 0.7 10^3/ul (0.8-2.9); LYMPHOCYTES % 15.4 % (15.0-51.0); MEAN CORPUSCULAR HEMOGLOBIN 31.2 pg (29.0-33.0); MEAN CORPUSCULAR HGB CONC 32.8 g/dl (32.0-37.0); MEAN PLATELET VOLUME 11.3 fl (7.4-10.4); MONOCYTE # 0.5 10^3/ul (0.3-0.9); MONOCYTES % 11.9 % (0.0-11.0); NEUTROPHIL # 2.8 10^3/ul (1.6-7.5); NEUTROPHILS % 67.3 % (39.0-77.0); PLATELET COUNT 77 10^3/UL (140-415); RED BLOOD COUNT 2.79 10^6/ul (4.20-5.40); RED CELL DISTRIBUTION WIDTH 16.1 % (11.5-14.5); WHITE BLOOD COUNT 4.2 10^3/ul (4.8-10.8)
[2017-01-20 05:50] LABS: POSITIVE DIFF @See below
[2017-01-20] MEDS: FUROSEMIDE 20 MG TAB PO SCH (06:07)
[2017-01-20] MEDS: BISACODYL (EC) 5 MG TAB PO PRN (06:16)
[2017-01-20 06:21] LABS: CALCIUM 8.6 mg/dl (8.4-10.2); CREATININE 4.37 mg/dl (0.44-1.00); PHOSPHORUS 6.9 mg/dl (2.5-4.9); POTASSIUM 3.7 mmol/L (3.5-5.1)
[2017-01-20 07:56] VITALS: BP 124/59; RESP 20
[2017-01-20] MEDS: PREGABALIN 25 MG CAP PO SCH (08:41)
[2017-01-20] MEDS: GEMFIBROZIL 600 MG TAB PO SCH (08:41)
[2017-01-20] MEDS: SEVELAMER CARBONATE 0.8 GM PKT PO SCH ×2 (08:41→12:41)
[2017-01-20] MEDS: MULTIVIT/CA CARB/B CMPLX/FA TAB PO SCH (08:42)
[2017-01-20] MEDS: GABAPENTIN 100 MG CAP PO SCH (08:42)
[2017-01-20] MEDS: ALLOPURINOL 100 MG TAB PO SCH (08:42)
[2017-01-20] MEDS: INSULIN ASPART [NOVOLOG] 3 ML PEN SC SCH ×2 (08:48→12:45)
--- NOTE | 2017-01-20 12:31 | PDOCDIS ---
Discharge Instructions CONDITION Patient Condition: Stable FOLLOW UP/APPOINTMENTS Follow-up Plan 1. Patient will need to follow up with your primary care provider in order to get a referral to a specialized oncology orthopedic surgeon ([facility] [place] to [place] left hip mass 2. Physical therapy will be ordered for home visits 3. Take medications as directed. SANDRA DENNIS Jan 20, 2017 12:30
[2017-01-20] MEDS ORDERED: GABA100C14 PO (12:34)
--- NOTE | 2017-01-20 12:39 | DS ---
Date/Time of Note Date/Time of Note DATE: 01/20/17 TIME: 12:38 Discharge Summary Admission/Discharge Info Admit Date/Time Jan 18, 2017 at 10:01 Discharge Date/Time Patient Condition: Stable Hx of Present Illness Patient is a 76-year-old female with a past medical history of end-stage renal disease on hemodialysis, osteoarthritis and dyslipidemia who presents to [facility] for difficulty ambulating and hip pain. Patient was evaluated in the ED and stated that for the past day or so she normally can get up by herself or with mild assistance and this time could not ambulate which he usually does with a cane. The son is at bedside to help translate. Patient states that there is also a bump on her hip which is new but that the pain and size of this bump has decreased since receiving Decadron and morphine in the ED. Patient had a positive straight leg test per ED physician. CT and x-ray were negative except for chronic osteoarthritis and degenerative changes. PMH: End-stage renal disease, gout, dyslipidemia, questionable cirrhosis, osteoarthritis PSH: Left upper extremity fistula Social: Denies smoking drinking or drugs Meds: Allopurinol 100 mg daily, Lipitor 20 mg daily, ferrous sulfate 325 mill grams daily, Lasix 20 mg twice a day, omega-3 fatty acid 1 g twice a day, Renvela 800 mg 3 times a day, Tiffany-Radha, vitamin D3, magnesium, gemfibrozil 600 mg daily Hospital Course Assessment and problem list Weakness left hip mass Anemia, chronic Thrombocytopenia End-stage renal disease Hip pain Osteoarthritis Questionable cirrhosis Splenomegaly Moderate to severe degenerative disc disease Bilateral hip osteoarthritis Portal hypertension Electrolyte derangement Patient is a 76-year-old female with a past medical history significant for ESRD and osteoarthritis who presented to [facility] for definitive and left hip mass. Patient was evaluated and CT scan was done as well as MRI which did find a soft tissue mass on her left hip. Orthopedic surgery was consulted and did see the patient. Orthopedic surgery recommended follow-up in the outpatient setting with a specialty oncologic orthopedic surgeon at a tertiary care center. Physical therapy will be provided at home as well as numbers to a tertiary care center in order to take an appointment for a oncologic orthopedic physician. It was clearly explained to the patient and the patient's son the plan of action and they understand. Patient's pain has significantly reduced during this admission and will be discharged on a renal dose of gabapentin. It was also explained to the patient that she will need to follow-up with the GI physician for possible cirrhosis. Home Meds Active Scripts Gabapentin* (Gabapentin*) 100 Mg Capsule, 100 MG PO DAILY for 30 Days, #30 CAP Prov:SANDRA DENNIS 01/20/17 Reported Medications Gemfibrozil* (Gemfibrozil*) 600 Mg Tablet, 600 MG PO BID, TAB 01/17/17 Magnesium Oxide* (Mag-Oxide*) 400 Mg Tablet, 400 MG PO DAILY, TAB 01/17/17 Sevelamer Carbonate* (Renvela*) 0.8 Gm Powd.pack, 0.8 GM PO WITH MEALS, PACKET 01/17/17 [place]-3 Fatty Acids/Fish Oil ([place] 3 1,000 mg Softgel) 1 Each Capsule, 1 EACH PO, CAP 01/17/17 Furosemide* (Lasix*) 20 Mg Tablet, 20 MG PO BID, TAB 01/17/17 Ferrous Sulfate* (Ferrous Sulfate*) 325 Mg Tabec, 325 MG PO DAILY, TAB 01/17/17 Atorvastatin Calcium* (Atorvastatin Calcium*) 20 Mg Tablet, 20 MG PO QHS, #30 TAB 01/17/17 Allopurinol* (Zyloprim*) 100 Mg Tablet, 100 MG PO DAILY, TAB 01/17/17 Primary Care Provider Domingo Robertson Pending Labs Laboratory Tests Test 01/19/17 17:50 01/19/17 20:55 01/20/17 02:08 01/20/17 04:37 Bedside Glucose 156mg/dL (70-220) 185mg/dL (70-220) 204mg/dL (70-220) Sodium Level 137mmol/L (135-144) Potassium Level 3.7mmol/L (3.5-5.1) Chloride Level 92mmol/L (97-110) Carbon Dioxide Level 24mmol/L (21-31) Anion Gap 25 (8-16) Blood Urea Nitrogen 70mg/dl (7-20) Creatinine 4.37mg/dl (0.44-1.00) Glucose Level 173mg/dl (70-220) Calcium Level 8.6mg/dl (8.4-10.2) Phosphorus Level 6.9mg/dl (2.5-4.9) Magnesium Level 2.0mg/dl (1.7-2.5) Test 01/20/17 04:38 01/20/17 08:37 White Blood Count 4.210^3/ul (4.8-10.8) Red Blood Count 2.7910^6/ul (4.20-5.40) Hemoglobin 8.7g/dl (12.0-16.0) Hematocrit 26.5% (37.0-47.0) Mean Corpuscular Volume 95.0fl (82.0-101.0) Mean Corpuscular Hemoglobin 31.2pg (29.0-33.0) Mean Corpuscular Hemoglobin Concent 32.8g/dl (32.0-37.0) Red Cell Distribution Width 16.1% (11.5-14.5) Platelet Count 7710^3/UL (140-415) Mean Platelet Volume 11.3fl (7.4-10.4) Neutrophils % 67.3% (39.0-77.0) Lymphocytes % 15.4% (15.0-51.0) Monocytes % 11.9% (0.0-11.0) Eosinophils % 5.0% (0.0-7.0) Basophils % 0.2% (0.0-2.0) Nucleated Red Blood Cells % 0.0/100WBC (0.0-0.0) Neutrophils # 2.810^3/ul (1.6-7.5) Lymphocytes # 0.710^3/ul (0.8-2.9) Monocytes # 0.510^3/ul (0.3-0.9) Eosinophils # 0.210^3/ul (0.0-0.5) Basophils # 0.010^3/ul (0.0-0.1) Nucleated Red Blood Cells # 0.010^3/ul (0.0-0.0) Bedside Glucose 183mg/dL (70-220) SANDRA DENNIS Jan 20, 2017 12:38
== END 2017-01-20 13:30 | disposition home health service (06) | DRG 557 ==
LOC: FTE 12:35 → MS1 16:49 → OBSVTOIN 01-18 10:01
PROVIDERS: ADMIT Internal Medicine; ATTEND Internal Medicine
PROC: 5A1D60Z (ICD-10-PCS; principal; 2017-01-18)
DX: M70.62 Trochanteric bursitis, left hip (principal); N18.6 End stage renal disease; I12.0 Hypertensive chronic kidney disease with stage 5 chronic kidney disease or end stage renal disease; K76.6 Portal hypertension; D69.6 Thrombocytopenia, unspecified; E11.22 Type 2 diabetes mellitus with diabetic chronic kidney disease; M16.0 Bilateral primary osteoarthritis of hip; M25.852 Other specified joint disorders, left hip; M51.36 Other intervertebral disc degeneration, lumbar region; D50.0 Iron deficiency anemia secondary to blood loss (chronic); E87.8 Other disorders of electrolyte and fluid balance, not elsewhere classified; R26.2 Difficulty in walking, not elsewhere classified; R16.1 Splenomegaly, not elsewhere classified; Y93.9 Activity, unspecified; Z99.2 Dependence on renal dialysis
CPT/HCPCS: 72197; 73520; 74176; 76536; 80048; 80053; 81001; 82962; 83036; 83690; 83735; 84100; 85025; 87081; 90935; 96374; 96375; 97116; 97162; 97167; 97530; G0378; J1100; J1815; J2270